=== PATIENT | female | born 1960 | race Caucasian/White ===

== ENCOUNTER 2016-06-02 21:56 | Emergency (ER) | payer OTHER ==
[2016-06-02 22:06] VITALS: TEMP 98.2; BMI 34.4
--- NOTE | 2016-06-02 22:35 | PDOC ---
History of Present Illness - History of Present Illness Initial Comments: 06/02/16 22:56 The patient is a 55 year old female with a past medical hx of HTN (lisinopril) who presents to the ED complaining of a headache since 1600 this afternoon. The patient reports her headache is localized to the frontal and occipital regions. She states she took Ibuprofen at 20:00 this evening with no relief. She reports associated nausea and a nose bleed. The nose bleed has since subsided. The patient denies any fever, chills The patient denies any neck pain, visual changes Surgical: , tubal ligation Allergies: NKDA Social: Denies tobacco use The patient speaks Gibraltarian. Interlibrary Loan Specialist phone used, [phone]. <Layla Quezada - Last Filed: 06/02/16 23:57> <Ana Stallworth - Last Filed: 06/03/16 01:50> - General Chief Complaint: Pain Stated Complaint: HEAD PAIN/NOSE BLEED Time Seen by Provider: 06/02/16 22:24 Past History <Layla Quezada - Last Filed: 06/02/16 23:57> - Past Medical History Anemia: No Asthma: No Cancer: No Cardiac Disorders: No CVA: No COPD: No CHF: No Dementia: No Diabetes: Yes GI Disorders: Yes (ENDOSCOPY 04/27) Disorders: No HTN: Yes Hypercholesterolemia: No Liver Disease: No Suicide Attempt (Hx): No Seizures: No Thyroid Disease: No - Surgical History Abdominal Surgery: No Appendectomy: No Cardiac Surgery: No Cholecystectomy: No Lung Surgery: No Neurologic Surgery: No Orthopedic Surgery: No - Psycho/Social/Smoking Cessation Hx Anxiety: No Suicidal Ideation: No Smoking Status: No Smoking History: Never smoked Have you smoked in the past 12 months: No Number of Cigarettes Smoked Daily: 0 Hx Alcohol Use: No Drug/Substance Use Hx: No Substance Use Type: None Hx Substance Use Treatment: No <Ana Stallworth - Last Filed: 06/03/16 01:50> - Past Medical History Allergies/Adverse Reactions: Allergies Allergy/AdvReac Type Severity Reaction Status Date / Time No Known Allergies Allergy Verified 06/02/16 22:02 Home Medications: Ambulatory Orders Lisinopril [Prinivil] 20 mg PO DAILY 06/02/16 Butalb/Acetaminophen/Caffeine [Fioricet 50-300-40 mg Capsule] 1 each PO BID PRN #12 capsule 06/03/16 Review of Systems - Review of Systems Able to Perform ROS?: Yes Comments:: 06/02/16 22:56 CONSTITUTIONAL: Absent: fever, chills, diaphoresis, generalized weakness, malaise, loss of appetite HEENT: +Epistaxis. Absent: rhinorrhea, nasal congestion, throat pain, throat swelling, difficulty swallowing, mouth swelling, ear pain, eye pain, visual Changes CARDIOVASCULAR: Absent: chest pain, syncope, palpitations, irregular heart rate, lightheadedness , peripheral edema RESPIRATORY: Absent: cough, shortness of breath, dyspnea with exertion, orthopnea, wheezing, stridor, hemoptysis GASTROINTESTINAL: +Nausea. Absent: abdominal pain, abdominal distension, vomiting, diarrhea, constipation, melena, hematochezia GENITOURINARY: Absent: dysuria, frequency, urgency, hesitancy, hematuria, flank pain, genital pain MUSCULOSKELETAL: Absent: myalgia, arthralgia, joint swelling SKIN: Absent: rash, itching, pallor HEMATOLOGIC/IMMUNOLOGIC: Absent: easy bleeding, easy bruising, lymphadenopathy, frequent infections ENDOCRINE: Absent: unexplained weight gain, unexplained weight loss, heat intolerance, cold intolerance NEUROLOGIC: +Headache. Absent: focal weakness or paresthesias, dizziness, unsteady gait, seizure, mental status changes, bladder or bowel incontinence PSYCHIATRIC: Absent: anxiety, depression, suicidal or homicidal ideation, hallucinations. <Layla Quezada - Last Filed: 06/02/16 23:57> *Physical Exam - Vital Signs Last Vital Signs Temp Pulse Resp BP Pulse Ox 98.2 F 77 18 147/59 98 06/02/16 22:03 06/02/16 22:03 06/02/16 22:03 06/02/16 22:03 06/02/16 22:03 - Physical Exam Comments: 06/02/16 22:56 GENERAL: Well developed, well nourished. Awake and alert. No acute distress. HEENT: Normocephalic, atraumatic. PERRLA, EOMI. No conjunctival pallor. Sclera are non- icteric. Moist mucous membranes. Oropharynx is clear. NECK: Supple. Full ROM. No JVD. Carotid pulses 2+ and symmetric, without bruits. No thyromegaly. No lymphadenopathy. CARDIOVASCULAR: Regular rate and rhythm. No murmurs, rubs, or gallops. Distal pulses are 2+ and symmetric. PULMONARY: No evidence of respiratory distress. Lungs clear to auscultation bilaterally. No wheezing, rales or rhonchi. ABDOMINAL: Soft. Non-tender. Non-distended. No rebound or guarding. No organomegaly. Normoactive bowel sounds. MUSCULOSKELETAL Normal range of motion at all joints. No bony deformities or tenderness. No CVA tenderness. EXTREMITIES: No cyanosis. No clubbing. No edema. No calf tenderness. SKIN: Warm and dry. Normal capillary refill. No rashes. No jaundice. NEUROLOGICAL: Alert, awake, appropriate. Cranial nerves 2-12 intact. No deficits to light touch and temperature in face, upper extremities and lower extremities. No motor deficits in the in face, upper extremities and lower extremities. Normoreflexic in the upper and lower extremities. Normal speech. Toes are down-going bilaterally. Gait is normal without ataxia. PSYCHIATRIC: Cooperative. Good eye contact. Appropriate mood and affect. <Layla Quezada - Last Filed: 06/02/16 23:57> - Vital Signs Last Vital Signs Temp Pulse Resp BP Pulse Ox 98.2 F 77 18 147/59 98 06/02/16 22:03 06/02/16 22:03 06/02/16 22:03 06/02/16 22:03 06/02/16 22:03 <Ana Stallworth - Last Filed: 06/03/16 01:50> Heart Score/ECG Review - ECG Impressions Comment:: 06/02/16 23:59 EKG NSR at a rate of 71 bpm <Layla Quezada - Last Filed: 06/02/16 23:57> ED Treatment Course - RADIOLOGY Radiograph Interpretation: 06/02/16 23:27 CT Head without contrast Impression: CT imaging completed with no mass, hemorrhage or acute vascular territory infarction. No acute changes in the brain identified. Reported by: Jose Alberto Kaye MD 06/02/16 [id number] <Layla Quezada - Last Filed: 06/02/16 23:57> - LABORATORY CBC & Chemistry Diagram: 06/03/16 00:08 06/03/16 00:08 <Ana Stallworth - Last Filed: 06/03/16 01:50> Medical Decision Making - Medical Decision Making 06/03/16 01:30 55 yo female p/w headache,nose bleed today. The headache was both frontal and occipital,no visual changes .Pt is axox3.no ataxia no gross focal neuro deficits no fever,no chills,no neck pain ,no vomiting but did have some nausea ct scan head no acute intracranial pathology -upon arrival she had no active epistaxis -ekg nsr 71 bpm ,no signs of ischemia. It was very similar to her ekg of April cbc is normal chemistry shows mild hyperglycemia 136 neg troponin -headache resolved w reglan,IVF I spoke to the pt's family later and this headache had been intermittent for several weeks. However she was not taking any medication for it and today she only took one tablet of ibuprofen for her headache -I explained that she could take 400mg -600mg of ibuprofen with food because 200mg of ibuprofen was probably insufficient amount IMP :headache- new daily persistent/ nose bleed resolved 06/03/16 01:44 06/03/16 01:49 <Ana Stallworth - Last Filed: 06/03/16 01:50> *DC/Admit/Observation/Transfer - Attestations Scribe Attestion: 06/02/16 22:56 Documentation prepared by Layla Quezada, acting as medical instrument cable fabricator for Ana Stallworth MD/DO. <Layla Quezada - Last Filed: 06/02/16 23:57> <Ana Stallworth - Last Filed: 06/03/16 01:50> Diagnosis at time of Disposition: Nasal bleeding, Hyperglycemia Head ache Qualifiers: Headache type: unspecified Headache chronicity pattern: acute headache Intractability: not intractable Qualified Code(s): R51 - Headache - Discharge Dispostion Disposition: HOME Condition at time of disposition: Stable - Prescriptions Prescriptions: Butalb/Acetaminophen/Caffeine [Fioricet 50-300-40 mg Capsule] 1 each PO BID PRN #12 capsule PRN Reason: Headache - Referrals Referrals: Saranya Mcfarlane MD [Primary Care Provider] - - Patient Instructions Printed Discharge Instructions: DI for Hormonal and Tension Headaches, DI for Nosebleed, DI for Hyperglycemia -- Adult Additional Instructions: Please follow up with your doctor because your blood sugar was elevated and this needs to be repeated
[2016-06-02] MEDS ORDERED: METOCLOPRAMIDE HCL INJECTION 10 MG/2 ML VIAL IVPUSH ONE (23:03)
[2016-06-02] MEDS ORDERED: SODIUM CHLORIDE 1,000 ML IV STA (23:03)
[2016-06-02] MEDS ORDERED: ACETAMINOPHEN 500 MG TABLET (FP) PO ONE (23:04)
[2016-06-02] MEDS ORDERED: ACETAMINOPHEN 325 MG TABLET (FP) ONE (23:47)
[2016-06-02] MEDS ORDERED: METOCLOPRAMIDE HCL INJECTION 10 MG/2 ML VIAL ONE (23:47)
[2016-06-03 00:21] LABS: BASOPHIL 1.5 % (0-2.0); MCH 30.3 pg (25.7-33.7); MCHC 33.8 g/dl (32.0-36.0); MEAN CELL VOLUME 89.6 fl (80-96); MEAN PLT VOLUME 9.7 fl (7.5-11.1); NEUTROPHILS 61.4 % (42.8-82.8); PLATELET COUNT 130 K/MM3 (134-434); RDW 13.4 % (11.6-15.6); WHITE BLOOD COUNT 5.6 K/mm3 (4.0-10.0)
[2016-06-03 00:52] LABS: ANION GAP 10 (8-16); CALCIUM 8.9 mg/dL (8.5-10.1); CO2 24 mmol/L (21-32); COCKROFT - GAULT 105.6975; CREATININE 0.8 mg/dL (0.55-1.02); GLUCOSE,RANDOM 136 mg/dL (74-106); SGOT/AST 21 U/L (15-37); SGPT/ALT 31 U/L (12-78); TROPONIN I < 0.02 ng/ml (0.00-0.05)
[2016-06-03 00:53] LABS: ALK PHOS 38 U/L (45-117); BILIRUBIN,TOTAL 0.5 mg/dL (0.2-1.0); TOT PROT 7.3 g/dl (6.4-8.2)
[2016-06-03 02:04] VITALS: BP 111/74; PULSE 58
--- NOTE | 2016-06-03 13:11 | EKG ---
Test Reason : Blood Pressure : / mmHG Vent. Rate : 071 BPM Atrial Rate : 071 BPM P-R Int : 184 ms QRS Dur : 086 ms QT Int : 400 ms P-R-T Axes : 047 014 047 degrees QTc Int : 434 ms NORMAL SINUS RHYTHM LOW VOLTAGE QRS BORDERLINE ECG WHEN COMPARED WITH ECG OF 25-APR-2012 23:24, NO SIGNIFICANT CHANGE WAS FOUND Confirmed by FRANCISCO CANDELARIA MD ([id number]) on 06/03/2016 1:11:11 PM Referred By: Confirmed By:FRANCISCO CANDELARIA MD
== END 2016-06-03 02:04 | disposition home or self-care (01) ==
LOC: JER 21:56
PROC: 3E0337Z Introduction of Electrolytic and Water Balance Substance into Peripheral Vein, Percutaneous Approach (ICD-10-PCS; principal; 2016-06-02)
PROC: 3E033GC Introduction of Other Therapeutic Substance into Peripheral Vein, Percutaneous Approach (ICD-10-PCS; 2016-06-02)
DX: R51 Headache (principal); E11.65 Type 2 diabetes mellitus with hyperglycemia
CPT/HCPCS: 36415; 70450-TC; 80053; 82550; 82553; 84484; 85025; 93005; 93010; 96361; 96374; 96375; 99284-25

== ENCOUNTER 2016-08-26 13:59 | Emergency (ER) | payer OTHER ==
[2016-08-26 14:06] VITALS: BMI 34.7
--- NOTE | 2016-08-26 14:23 | PDOC ---
History of Present Illness - General Chief Complaint: Pain Stated Complaint: ABD PAIN Time Seen by Provider: 08/26/16 14:23 History Source: Patient, Medical Technologist Used (marketing communications specialist [id number]) Exam Limitations: No Limitations - History of Present Illness Initial Comments: 08/26/16 15:29 Patient is a 56-year-old female with a past medical history of hypertension, eti-gszppvr-eacjpeeqp diabetes migraines, acid reflux, gastritis who presents to the emergency department complaining of a burning sensation in her throat, nausea, headache, fatigue and weakness. Patient states her symptoms began approximately 2 days ago. She states that her burning sensation radiates up her throat and to her left chest. Nothing has made her symptoms better. She states that the symptoms just came on and nothing provoked them. She also states that she has dysuria, frequency, and urgency. Denies chest pain, palpitations, lightheadedness, shortness of breath, wheezing, vomiting, diarrhea and constipation. Past History - Travel Traveled outside of the country in the last 30 days: No Close contact w/someone who was outside of country & ill: No - Past Medical History Allergies/Adverse Reactions: Allergies Allergy/AdvReac Type Severity Reaction Status Date / Time No Known Allergies Allergy Verified 08/26/16 14:05 Home Medications: Ambulatory Orders Lisinopril [Prinivil] 20 mg PO DAILY 06/02/16 Bismuth Subsalicylate [Pepto-Bismol -] 524 mg PO BID #420 ml 08/26/16 Pantoprazole Sodium [Protonix -] 40 mg PO DAILY #7 tablet.ec 08/26/16 Simvastatin [Zocor -] 20 mg PO HS 08/26/16 Anemia: No Asthma: No Cancer: No Cardiac Disorders: No CVA: No COPD: No CHF: No Dementia: No Diabetes: Yes GI Disorders: Yes (REFLUX) Disorders: No HTN: Yes Hypercholesterolemia: No Liver Disease: No Suicide Attempt (Hx): No Seizures: No Thyroid Disease: No - Surgical History Abdominal Surgery: No Appendectomy: No Cardiac Surgery: No Cholecystectomy: No Lung Surgery: No Neurologic Surgery: No Orthopedic Surgery: No - Immunization History Immunization Up to Date: No - Psycho/Social/Smoking Cessation Hx Anxiety: No Suicidal Ideation: No Smoking Status: No Smoking History: Never smoked Have you smoked in the past 12 months: No Number of Cigarettes Smoked Daily: 0 Hx Alcohol Use: No Drug/Substance Use Hx: No Substance Use Type: None Hx Substance Use Treatment: No Review of Systems - Review of Systems Able to Perform ROS?: Yes Is the patient limited Setswana proficient: Yes Constitutional: Yes: Malaise, Weakness. No: Chills, Fever Respiratory: No: Cough, Shortness of Breath, Wheezing Cardiac (ROS): No: Chest Pain, Lightheadedness, Chest Tightness ABD/GI: Yes: Nausea, Indigestion, Other (burning in her throat). No: Diarrhea, Vomiting : Yes: Burning, Dysuria, Frequency, Urgency. No: Flank Pain, Hematuria All Other Systems: Reviewed and Negative *Physical Exam - Vital Signs Last Vital Signs Temp Pulse Resp BP Pulse Ox 98.6 F 71 20 120/63 97 08/26/16 14:03 08/26/16 14:03 08/26/16 14:03 08/26/16 14:03 08/26/16 14:03 - Physical Exam General Appearance: Yes: Nourished, Appropriately Dressed, Mild Distress ( Sitting on exam bed, anxious appearing, AAOx3 breathing easily), Obese Neck: positive: Trachea midline, Supple. negative: Tender, Rigid Respiratory/Chest: positive: Lungs Clear, Normal Breath Sounds. negative: Respiratory Distress, Accessory Muscle Use, Rales, Rhonchi, Wheezing Cardiovascular: positive: Regular Rhythm, Regular Rate, S1, S2 (present). negative: Murmur Gastrointestinal/Abdominal: positive: Normal Bowel Sounds, Tender (TTP LLQ, Epigastric region with radiation to the back), Flat, Soft, Organomegaly. negative: Guarding, Rebound Neurologic: positive: digital media manager II-XII NML intact, Fully Oriented, Alert, Normal Mood/ Affect, Normal Response, Motor Strength 5/5 Deep Tendon Reflexes: Ankle (L): 2+, Ankle (R): 2+, Knee (L): 2+, Knee (R): 2+ ED Treatment Course - LABORATORY CBC & Chemistry Diagram: 08/26/16 15:15 08/26/16 15:15 Medical Decision Making - Medical Decision Making 08/26/16 15:39 Patient is a 56-year-old female with a past medical history of hypertension, nty-acwxuzm-hfayfjhau diabetes migraines, acid reflux, gastritis who presents to the emergency department complaining of a burning sensation in her throat, nausea, headache, fatigue and weakness. Given patient's multiple and vague complaints, will do a broad workup. Likely GERD/gastritis with probable UTI, cannot rule out ACS. 1. CBC, CMP, Lipase, Cardiac Panel, UA, UC, PT/INR 2. EKG 3. Zofran and protonix 4. Re-evaluate 08/26/16 17:55 EKG shows normal sinus rhythm with a rate of 67 bpm. [place] is normal. AR interval 186. No ST elevations or depressions. T-wave flattening in lead II Labs are notable for an elevated CK-MB. Trop is negative. Most probably GERD/. Pt states she feels a little better but she still has some burning. Will try peptobismol at this time. Re-evaluate 08/26/16 19:36 She feels better after receiving Pepto-Bismol. As long as second troponin is negative we will discharge home. Is most likely a flare of her gastritis. Patient was instructed that she needs to follow up with her primary care doctor tomorrow. Sign out given to Gabbie Rojo NP. *DC/Admit/Observation/Transfer Diagnosis at time of Disposition: Acute gastritis Qualifiers: Gastritis type: unspecified gastritis Gastritis bleeding: without bleeding Qualified Code(s): K29.00 - Acute gastritis without bleeding - Discharge Dispostion Disposition: HOME Condition at time of disposition: Improved Admit: No - Referrals Referrals: Saranya Mcfarlane MD [Primary Care Provider] - - Patient Instructions Printed Discharge Instructions: DI for Gastritis Additional Instructions: Tuviste un brote de gastritis. Todo altamirano trabajo de laboratorio hoy era negativo y altamirano EKG era normal. Altamirano prescrita Pepto Ismol, as renee Protonix. [place] estos medicamentos segn lo prescrito hasta que se sienta mejor. Coma lurdes dieta suave incluyendo el arroz y la tostada de la compota de manzana de los pltanos hasta que aracely sntomas disminuyan. Siga con altamirano mdico de atencin primaria maana. Vuelva al departamento de emergencias si tiene dolor agravado, dolor en el pecho , dificultad para respirar o cualquier cambio en aracely sntomas. Print Language: HONDURAN
--- NOTE | 2016-08-26 15:03 | PDOC ---
*Physical Exam - Vital Signs Last Vital Signs Temp Pulse Resp BP Pulse Ox 98.6 F 71 20 120/63 97 08/26/16 14:03 08/26/16 14:03 08/26/16 14:03 08/26/16 14:03 08/26/16 14:03 Heart Score/ECG Review #1 ECG reviewed & interpreted by me at: 16:09 08/26/16 16:10 Twelve-lead EKG was performed and reviewed by me. There is normal sinus rhythm with a normal rate of 67 bpm. The axis is normal. The intervals are normal - pr: 186ms, QRS:78ms, QTc:441ms. There are no ST elevations or depressions. T wave flattening II Impression: Normal twelve-lead EKG ED Treatment Course - LABORATORY CBC & Chemistry Diagram: 08/26/16 15:15 08/26/16 15:15 Medical Decision Making - Medical Decision Making 08/26/16 15:02 This is a 56 yo F who presents to the ER with a complaint of abdominal pain, located in the epigastrium No diaphresis Pain has been constant No alleviating factors No exertional symptoms No pain radiating to the back or jaw No diarrhea Pt seen by Midlevel Provider under my direct supervision Ancillary studies reviewed Pending repeat trop Given antacid I agree with plan as outlined by Midlevel Provider *DC/Admit/Observation/Transfer Diagnosis at time of Disposition: Acute gastritis - Prescriptions Prescriptions: Bismuth Subsalicylate [Pepto-Bismol -] 524 mg PO BID #420 ml Pantoprazole Sodium [Protonix -] 40 mg PO DAILY #7 tablet.ec - Referrals Referrals: Saranya Mcfarlane MD [Primary Care Provider] - - Patient Instructions Printed Discharge Instructions: DI for Gastritis Additional Instructions: Tuviste un brote de gastritis. Todo altamirano trabajo de laboratorio hoy era negativo y altamirano EKG era normal. Alt[place]irano prescrita Pepto Ismol, as renee Protonix. [place] estos medicamentos segn lo prescrito hasta que se sienta mejor. Coma lurdes dieta suave incluyendo el arroz y la tostada de la compota de manzana de los pltanos hasta que aracely sntomas disminuyan. Siga con altamirano mdico de atencin primaria maana. Vuelva al departamento de emergencias si tiene dolor agravado, dolor en el pecho , dificultad para respirar o cualquier cambio en aracely sntomas. Print Language: QATARI
[2016-08-26] MEDS ORDERED: ONDANSETRON 4 MG/2 ML VIAL IVPUSH ONE (15:32)
[2016-08-26] MEDS ORDERED: PANTOPRAZOLE SODIUM 40 MG in SODIUM CHLORIDE 100 ML IVPB ONE (15:32)
[2016-08-26 15:35] LABS: BASOPHIL 1.4 % (0-2.0); EOSINOPHIL 0.9 % (0-4.5); MCH 29.5 pg (25.7-33.7); MCHC 33.1 g/dl (32.0-36.0); MEAN CELL VOLUME 89.4 fl (80-96); MEAN PLT VOLUME 9.8 fl (7.5-11.1); NEUTROPHILS 61.8 % (42.8-82.8); PLATELET COUNT 124 K/MM3 (134-434); RDW 13.8 % (11.6-15.6); WHITE BLOOD COUNT 5.4 K/mm3 (4.0-10.0)
[2016-08-26] MEDS ORDERED: ONDANSETRON 4 MG/2 ML VIAL ONE (15:36)
[2016-08-26] MEDS ORDERED: PANTOPRAZOLE SODIUM 40 MG VIAL ONE (15:37)
[2016-08-26 15:58] LABS: URINE APPEARANCE CLEAR; URINE BILIRUBIN NEGATIVE (NEGATIVE); URINE BLOOD NEGATIVE (NEGATIVE); URINE COLOR STRAW; URINE GLUCOSE (UA) NEGATIVE (NEGATIVE); URINE KETONE NEGATIVE (NEGATIVE); URINE LEUK ESTERASE NEGATIVE (NEGATIVE); URINE NITRITE NEGATIVE (NEGATIVE); URINE PROTEIN NEGATIVE (NEGATIVE); URINE UROBILINOGEN NEGATIVE E.U./dl (0.2-1.0)
[2016-08-26 16:02] LABS: ALBUMIN 4.2 g/dl (3.4-5.0); ANION GAP 9 (8-16); CALCIUM 9.1 mg/dL (8.5-10.1); CO2 25 mmol/L (21-32); CREATININE 0.8 mg/dL (0.55-1.02); GLUCOSE,RANDOM 142 mg/dL (74-106); SGOT/AST 30 U/L (15-37); SGPT/ALT 45 U/L (12-78)
[2016-08-26 16:04] LABS: ALK PHOS 41 U/L (45-117); BILIRUBIN,TOTAL 0.7 mg/dL (0.2-1.0); TOT PROT 7.7 g/dl (6.4-8.2)
[2016-08-26 16:06] LABS: TROPONIN I < 0.02 ng/ml (0.00-0.05)
[2016-08-26] MEDS ORDERED: BISMUTH SUBSALICYLATE 262 MG/15 ML BTL PO ONE (17:51)
[2016-08-26 19:31] VITALS: BP 123/73; PULSE 63; TEMP 97.3
--- NOTE | 2016-08-26 19:47 | PDOC ---
*Physical Exam - Vital Signs Last Vital Signs Temp Pulse Resp BP Pulse Ox 97.3 F L 63 17 123/73 98 08/26/16 19:30 08/26/16 19:30 08/26/16 19:30 08/26/16 19:30 08/26/16 19:30 - Physical Exam Comments: 08/26/16 19:47 Sign-out received from outgoing ER provider Ember. Pt interviewed and examined. Patient states she is feeling better after medications. Ancillary studies reviewed. Awaiting repeat cardiac enzymes. 08/26/16 20:15 Repeat trop negative. Will discharge patient to home with close f/u with PMD. ED Treatment Course - LABORATORY CBC & Chemistry Diagram: 08/26/16 15:15 08/26/16 15:15 - ADDITIONAL ORDERS Additional order review: Laboratory Results 08/26/16 08/26/16 08/26/16 15:15 15:15 15:15 Sodium 142 Potassium 3.9 Chloride 108 H Carbon Dioxide 25 Anion Gap 9 BUN 15 Creatinine 0.8 Creat Clearance w eGFR > 60 Random Glucose 142 H Calcium 9.1 Total Bilirubin 0.7 D AST 30 D ALT 45 D Alkaline Phosphatase 41 L Creatine Kinase 430 H D CK-MB (CK-2) 6.200 H Troponin I < 0.02 Total Protein 7.7 Albumin 4.2 Lipase 113 Urine Color Straw Urine Appearance Clear Urine pH 5.0 Urine Protein Negative Urine Glucose (UA) Negative Urine Ketones Negative Urine Blood Negative Urine Nitrite Negative Urine Bilirubin Negative Urine Urobilinogen Negative Ur Leukocyte Esterase Negative 08/26/16 15:15 Sodium Cancelled Potassium Cancelled Chloride Cancelled Carbon Dioxide Cancelled Anion Gap Cancelled BUN Cancelled Creatinine Cancelled Creat Clearance w eGFR Cancelled Random Glucose Cancelled Calcium Cancelled Total Bilirubin Cancelled AST Cancelled ALT Cancelled Alkaline Phosphatase Cancelled Creatine Kinase CK-MB (CK-2) Troponin I Total Protein Cancelled Albumin Cancelled Lipase Urine Color Urine Appearance Urine pH Urine Protein Urine Glucose (UA) Urine Ketones Urine Blood Urine Nitrite Urine Bilirubin Urine Urobilinogen Ur Leukocyte Esterase 08/26/16 15:15 RBC 4.60 MCV 89.4 MCHC 33.1 RDW 13.8 MPV 9.8 Neutrophils % 61.8 Lymphocytes % 30.2 Monocytes % 5.7 Eosinophils % 0.9 Basophils % 1.4 - Medications Given in the ED: ED Medications Discontinued Medications Generic Name Dose Route Start Last Admin Trade Name Freq PRN Reason Stop Dose Admin Bismuth Subsalicylate 30 ml 08/26/16 17:51 08/26/16 18:50 Pepto-Bismol Liquid - PO 08/26/16 17:52 30 ml ONCE ONE Administration Pantoprazole Sodium 40 mg/ 100 mls @ 200 mls/hr 08/26/16 15:32 08/26/16 15:55 Sodium Chloride IVPB 08/26/16 16:01 200 mls/hr ONCE ONE Administration Ondansetron HCl 4 mg 08/26/16 15:32 08/26/16 15:56 Zofran Injection IVPUSH 08/26/16 15:33 4 mg ONCE ONE Administration *DC/Admit/Observation/Transfer Diagnosis at time of Disposition: Acute gastritis Qualifiers: Gastritis type: unspecified gastritis Gastritis bleeding: without bleeding Qualified Code(s): K29.00 - Acute gastritis without bleeding - Prescriptions Prescriptions: Bismuth Subsalicylate [Pepto-Bismol -] 524 mg PO BID #420 ml Pantoprazole Sodium [Protonix -] 40 mg PO DAILY #7 tablet.ec - Referrals Referrals: Saranya Mcfarlane MD [Primary Care Provider] - - Patient Instructions Printed Discharge Instructions: DI for Gastritis Additional Instructions: Tuviste un brote de gastritis. Todo altamirano trabajo de laboratorio hoy era negativo y altamirano EKG era normal. Altamirano prescrita Pepto Ismol, as renee Protonix. [place] estos medicamentos segn lo prescrito hasta que se sienta mejor. Coma lurdes dieta suave incluyendo el arroz y la tostada de la compota de manzana de los pltanos hasta que aracely sntomas disminuyan. Siga con altamirano mdico de atencin primaria maana. Vuelva al departamento de emergencias si tiene dolor agravado, dolor en el pecho , dificultad para respirar o cualquier cambio en aracely sntomas. Print Language: CENTRAL AFRICAN - Post Discharge Activity
[2016-08-26 19:53] LABS: TROPONIN I < 0.02 ng/ml (0.00-0.05)
--- NOTE | 2016-08-27 13:10 | EKG ---
Test Reason : Blood Pressure : / mmHG Vent. Rate : 067 BPM Atrial Rate : 067 BPM P-R Int : 186 ms QRS Dur : 078 ms QT Int : 418 ms P-R-T Axes : 037 -08 034 degrees QTc Int : 441 ms POOR DATA QUALITY, INTERPRETATION MAY BE ADVERSELY AFFECTED NORMAL SINUS RHYTHM LOW VOLTAGE QRS CANNOT RULE OUT ANTERIOR INFARCT , AGE UNDETERMINED ABNORMAL ECG WHEN COMPARED WITH ECG OF 02-JUN-2016 23:54, NO SIGNIFICANT CHANGE WAS FOUND Confirmed by SLY CHOU MD ([id number]) on 08/27/2016 1:10:27 PM Referred By: Confirmed By:SLY CHOU MD
== END 2016-08-26 20:21 | disposition home or self-care (01) ==
LOC: JER 13:59
PROC: 3E033GC Introduction of Other Therapeutic Substance into Peripheral Vein, Percutaneous Approach (ICD-10-PCS; principal; 2016-08-26)
DX: K29.00 Acute gastritis without bleeding (principal)
CPT/HCPCS: 36415; 80053; 81003; 82550; 82553; 83690; 84484; 85025; 87086; 93005; 93010; 96365; 96375; 99283-25

== ENCOUNTER 2017-03-14 08:46 | Emergency (ER) | payer OTHER ==
[2017-03-14 08:50] VITALS: BP 143/73; PULSE 73; TEMP 98.3; BMI 34.4
--- NOTE | 2017-03-14 09:18 | PDOC ---
History of Present Illness - General Chief Complaint: Respiratory Stated Complaint: COUGH Time Seen by Provider: 03/14/17 09:04 History Source: Patient Exam Limitations: No Limitations - History of Present Illness Initial Comments: 03/14/17 11:46 This 56-year-old female who presents here with complaints of a cough that is bothering her at night. She was seen by her primary physician 2 days ago where she was treated with Augmentin and still remains on this antibiotic. She says that this is not helping because she is still coughing at night. She has not taken any [id number] medications. She states that she is having some difficulty at night when she lays down. Past History - Past Medical History Allergies/Adverse Reactions: Allergies Allergy/AdvReac Type Severity Reaction Status Date / Time No Known Allergies Allergy Verified 03/14/17 08:50 Home Medications: Ambulatory Orders Lisinopril [Prinivil] 20 mg PO DAILY 06/02/16 Bismuth Subsalicylate [Pepto-Bismol -] 524 mg PO BID #420 ml 08/26/16 Pantoprazole Sodium [Protonix -] 40 mg PO DAILY #7 tablet.ec 08/26/16 Simvastatin [Zocor -] 20 mg PO HS 08/26/16 Benzonatate [Tessalon Pearls -] 100 mg PO TID #21 capsule 03/14/17 Anemia: No Asthma: No Cancer: No Cardiac Disorders: No CVA: No COPD: No CHF: No Dementia: No Diabetes: Yes GI Disorders: Yes (REFLUX) Disorders: No HTN: Yes Hypercholesterolemia: No Liver Disease: No Seizures: No Thyroid Disease: No - Surgical History Abdominal Surgery: No Appendectomy: No Cardiac Surgery: No Cholecystectomy: No Lung Surgery: No Neurologic Surgery: No Orthopedic Surgery: No - Immunization History Immunization Up to Date: No - Suicide/Smoking/Psychosocial Hx Smoking Status: No Smoking History: Never smoked Have you smoked in the past 12 months: No Number of Cigarettes Smoked Daily: 0 Hx Alcohol Use: No Drug/Substance Use Hx: No Substance Use Type: None Hx Substance Use Treatment: No Review of Systems - Review of Systems Able to Perform ROS?: Yes Comments:: 03/14/17 11:47 General statement: Complaining of coughing at night Hematology: neg history of bleeding/blood thinners Skin: Neg for lesions, rash, bruising. HEENT: Neg symptoms Respiratory: Neg SOB or difficulty in breathing Cardiac: Neg chest pain GI: Neg pain, n/v : Neg problems on voiding MS: Neg for joint pain/stiffness, no edema Neuro: Neg for LOC, weakness, Endocrine: Neg for excess thirst/hunger, cold/heat intolerance, excess sweating Allergies: Neg for allergies *Physical Exam - Vital Signs Last Vital Signs Temp Pulse Resp BP Pulse Ox 98.3 F 73 18 143/73 100 03/14/17 08:48 03/14/17 08:48 03/14/17 08:48 03/14/17 08:48 03/14/17 08:48 - Physical Exam Comments: 03/14/17 11:47 General Appearance: This well appearing V/S: hemodynamically stable, afebrile Skin: WNL of pt's skin color, no signs of pallor, mottling, cyanosis Head:symmetrical Eyes: EOM's intact, PERRLA Ears: denies pain Nose: patent Throat: lips, teeth, gums, tongue, buccal mucos pink and moist Lungs: Chest symmetry equal. Cap refill <3 seconds. Lung sounds clear no wheezing noted Cardiac: PMI at R 4MCL space, pos S1 and S2, regular rate. Abdomen: Soft, round, nontender : Not observed Muscularskeletal: Gait steady, ambulated in to ER, no edema +PMS Neuro: AAOx3, cognitively intact, speech clear and appropriate. Medical Decision Making - Medical Decision Making 03/14/17 11:48 She initially seen and examined. She had already been started on Augmentin. At this time of order Tessalon Terrance. Patient is now going to be discharged and told to follow-up with her primary physician as she is not having any wheezing and does not require any steroids. *DC/Admit/Observation/Transfer Diagnosis at time of Disposition: Cough in adult - Discharge Dispostion Disposition: HOME Condition at time of disposition: Good Admit: No - Prescriptions Prescriptions: Benzonatate [Tessalon Pearls -] 100 mg PO TID #21 capsule - Referrals Referrals: Aneglic Schwartz MD [Primary Care Provider] - - Patient Instructions Printed Discharge Instructions: DI for Acute Bronchitis Additional Instructions: Discharge instructions 1. Please follow up with your primary physician within the next few days and explain that you have been seen here in the Emergency Room. 2. If you experience any worsening of symptoms, please return to the ER 3. Rest and complete antibiotics as your MD prescribed. 4. Drink plenty of water Print Language: FAROESE - Post Discharge Activity
== END 2017-03-14 09:35 | disposition home or self-care (01) ==
LOC: JERFT 08:46
DX: R05 Cough (principal); I10 Essential (primary) hypertension; E11.9 Type 2 diabetes mellitus without complications; E78.00 Pure hypercholesterolemia, unspecified; K21.9 Gastro-esophageal reflux disease without esophagitis
CPT/HCPCS: 99281-25

== ENCOUNTER 2018-12-26 11:04 | Emergency (ER) | payer OTHER ==
[2018-12-26 11:10] VITALS: BP 133/87; PULSE 89; TEMP 98.2; BMI 36.1
--- NOTE | 2018-12-26 11:44 | PDOC ---
History of Present Illness - General Chief Complaint: Edema Stated Complaint: RT ARM PAIN/SWOLLEN RT HAND Time Seen by Provider: 12/26/18 11:19 - History of Present Illness Initial Comments: 12/26/18 11:39 58-year-old female without comorbidities presents for evaluation of 1 month of right middle finger pain and left thumb pain. No systemic symptoms. Seen by her primary care physician placed on a course of Naprosyn and a muscle relaxer she is gotten no relief. Past History - Past Medical History Allergies/Adverse Reactions: Allergies Allergy/AdvReac Type Severity Reaction Status Date / Time No Known Allergies Allergy Verified 12/26/18 11:10 Home Medications: Ambulatory Orders Lisinopril [Prinivil] 20 mg PO DAILY 06/02/16 Bismuth Subsalicylate [Pepto-Bismol -] 524 mg PO BID #420 ml 08/26/16 Pantoprazole Sodium [Protonix -] 40 mg PO DAILY #7 tablet.ec 08/26/16 Simvastatin [Zocor -] 20 mg PO HS 08/26/16 Benzonatate [Tessalon Pearls -] 100 mg PO TID #21 capsule 03/14/17 Diclofenac Sodium 75 mg PO BID 12/26/18 Naproxen 500 mg PO DAILY 12/26/18 Anemia: No Asthma: No Cancer: No Cardiac Disorders: No CVA: No COPD: No CHF: No Dementia: No Diabetes: Yes GI Disorders: Yes (REFLUX) Disorders: No HTN: Yes Hypercholesterolemia: No Liver Disease: No Seizures: No Thyroid Disease: No - Surgical History Abdominal Surgery: No Appendectomy: No Cardiac Surgery: No Cholecystectomy: No Lung Surgery: No Neurologic Surgery: No Orthopedic Surgery: No - Immunization History Immunization Up to Date: No - Psycho Social/Smoking Cessation Hx Smoking Status: No Smoking History: Never smoked Have you smoked in the past 12 months: No Number of Cigarettes Smoked Daily: 0 Hx Alcohol Use: No Drug/Substance Use Hx: No Substance Use Type: None Hx Substance Use Treatment: No Review of Systems - Review of Systems Constitutional: No: Fever Musculoskeletal: Yes: Joint Pain *Physical Exam - Vital Signs Last Vital Signs Temp Pulse Resp BP Pulse Ox 98.2 F 89 14 133/87 96 12/26/18 11:08 12/26/18 11:08 12/26/18 11:08 12/26/18 11:08 12/26/18 11:08 - Physical Exam Comments: 12/26There is swelling about the right middle finger. Normal skin color and temperature. There is sausagelike edema and mild pain with passive stretch. She refuses to flex the DIP and PIPJ. She is unable to make a full fist. There is no warmth no areas of fluctuance. Greatest area of tenderness is about the A1 waldo of the right hand. The remainder of the upper arm is soft and nontender with floppy compartments neurovascularly intact. The left thumb is of normal skin color and temperature full range of motion with tenderness at the A1 waldo. Neurovascular intact. Upper extremity compartments in the left upper extremity are soft and nontender. Medical Decision Making - Medical Decision Making 12/26/18 11:41 This appears to be a lingering trigger finger. I will have her follow-up with hand surgery. I do not suspect flexor tenosynovitis Discharge - Discharge Information Problems reviewed: Yes Clinical Impression/Diagnosis: Trigger finger of left thumb, Trigger finger, right middle finger Condition: Stable Disposition: HOME - Admission No - Follow up/Referral Referrals: David Bañuelos MD [Primary Care Provider] - Maycol Mayes MD [Staff Physician] - - Patient Discharge Instructions Patient Printed Discharge Instructions: Trigger Finger, DI for Trigger Finger Additional Instructions: Without fail please follow-up with orthopedic surgery in 1 to 2 days for further evaluation and treatment options. Continue your regular medication as directed and return to the emergency room should symptoms worsen. - Post Discharge Activity
== END 2018-12-26 12:11 | disposition home or self-care (01) ==
LOC: JERFT 11:04
DX: M65.331 Trigger finger, right middle finger (principal); M65.312 Trigger thumb, left thumb; I10 Essential (primary) hypertension; E11.9 Type 2 diabetes mellitus without complications; K21.9 Gastro-esophageal reflux disease without esophagitis
CPT/HCPCS: 99281-25

== ENCOUNTER 2021-09-03 15:29 | Emergency (ER) | payer OTHER ==
[2021-09-03 15:43] VITALS: BP 110/73; PULSE 79; TEMP 98.5; BMI 30.7
[2021-09-03 16:22] LABS: HEMATOCRIT 37.6 % (32.4-45.2); HEMOGLOBIN 13.3 G/dL (10.7-15.3); MCH 30.7 pg (25.7-33.7); MCHC 35.4 g/dl (32.0-36.0); MEAN CELL VOLUME 86.8 fl (80-96); MEAN PLT VOLUME 9.4 fl (7.5-11.1); PLATELET COUNT 136.7 10^3/uL (134-434); RBC 4.33 10^6/uL (3.60-5.2); RDW 14.6 % (11.6-15.6); WHITE BLOOD COUNT 5.2 10^3/uL (4.0-10.8)
[2021-09-03 16:26] LABS: INR 1.34 (0.83-1.09); PROTHROMBIN TIME (PATIENT) 15.5 SEC (9.7-13.0)
[2021-09-03 16:35] LABS: ALBUMIN 4.3 g/dl (3.4-5.0); CALCIUM 9.7 mg/dl (8.5-10); CREATININE 0.8 mg/dl (0.55-1.3); TOT PROT 7.3 g/dl (6.4-8.2)
[2021-09-03 16:37] LABS: PLATELET ESTIMATE ADEQUATE
[2021-09-03] MEDS ORDERED: ONDANSETRON 4 MG/2 ML VIAL IVPB ONE (16:58)
[2021-09-03] MEDS ORDERED: FAMOTIDINE 20 MG/50 ML IVPB 20 MG/50 ML MG IVPB ONE ×2 (16:58→17:05)
[2021-09-03] MEDS ORDERED: ONDANSETRON 4 MG/2 ML VIAL ONE (17:04)
== END 2021-09-03 18:38 | disposition home or self-care (01) ==
LOC: FER 15:29
PROC: 3E033GC Introduction of Other Therapeutic Substance into Peripheral Vein, Percutaneous Approach (ICD-10-PCS; principal; 2021-09-03)
DX: E11.40 Type 2 diabetes mellitus with diabetic neuropathy, unspecified (principal); K21.9 Gastro-esophageal reflux disease without esophagitis
CPT/HCPCS: 36415; 71045-TC-FY; 80053; 84484; 85027; 85610; 93005; 99285-25

== ENCOUNTER 2023-12-15 04:17 | Day surgery (SDC) | payer OTHER ==
[2023-12-10 18:05] VITALS: BMI 28.5
[2023-12-15] MEDS ORDERED: PHENYLEPHRINE 2.5% OPTHALMIC DROP 2ML BOTTLE ONE (07:17)
[2023-12-15] MEDS ORDERED: POVIDONE-IODINE 5% OPHTHALMIC PREP 30 ML SOLUTION ONE (07:17)
[2023-12-15] MEDS ORDERED: KETOROLAC TROMETHAMINE 0.5% EYE DROP 1 DROP DROPS ONE (07:17)
[2023-12-15] MEDS ORDERED: OFLOXACIN 0.3% OPHTHALMIC SOLUTION 5 ML BOTTLE ONE (07:17)
[2023-12-15] MEDS ORDERED: BSS (NA/CA/MG/K) BALANCED SALT SOLUTION OPHTH SOLN 15 ML BOTTLE ONE (07:17)
[2023-12-15] MEDS ORDERED: TROPICAMIDE 1% OPHTH SOLN 15 ML BOTTLE ONE (07:17)
[2023-12-15] MEDS ORDERED: LIDOCAINE HCL/PF 1% SDV 5ML VIAL ONE (07:17)
[2023-12-15] MEDS ORDERED: CYCLOPENTOLATE HCL 1% OPHTH SOLN 2 ML BOTTLE ONE (07:17)
[2023-12-15] MEDS: CYCLOPENTOLATE HCL 1% OPHTH SOLN 2 ML BOTTLE OP SCH (07:34)
[2023-12-15] MEDS: TROPICAMIDE 1% OPHTH SOLN 15 ML BOTTLE OP SCH (07:35)
[2023-12-15] MEDS: KETOROLAC TROMETHAMINE 0.5% EYE DROP 1 DROP DROPS OP SCH (07:35)
[2023-12-15] MEDS: PHENYLEPHRINE 2.5% OPHTH SOLN 15 ML BOTTLE OP SCH (07:36)
[2023-12-15] MEDS: OFLOXACIN 0.3% OPHTHALMIC SOLUTION 5 ML BOTTLE OP SCH (07:36)
[2023-12-15] MEDS ORDERED: MIDAZOLAM HCL 2 MG/2 ML SINGLE DOSE VIAL ONE (09:11)
[2023-12-15] MEDS: TETRACAINE 0.5% OPHTH SOLN 2 ML BOTTLE OD ONE ×2 (09:13)
[2023-12-15] MEDS: POVIDONE-IODINE 5% OPHTHALMIC PREP 30 ML SOLUTION OD ONE ×2 (09:15)
[2023-12-15] MEDS: LIDOCAINE HCL 1% PRESERVATIVE FREE - 30ML VIAL IO ONE ×2 (09:20)
[2023-12-15] MEDS: BSS (NA/CA/MG/K) BALANCED SALT SOLUTION OPHTH SOLN 15 ML BOTTLE IO ONE ×2 (09:23)
[2023-12-15] MEDS: CHONDROITIN SU A/HYALUR SOD 1 KIT IO ONE ×2 (09:26)
[2023-12-15] MEDS: EPINEPHrine 1:1,000 1,000 MCG/ML ML IVPB ONE ×2 (09:32)
[2023-12-15] MEDS ORDERED: ACETAMINOPHEN 325 MG TABLET (FP) ONE (10:22)
[2023-12-15] MEDS: ACETAMINOPHEN 325 MG TABLET (FP) PO PRN (10:25)
[2023-12-15 10:52] VITALS: BP 123/76; PULSE 60; RESP 20; TEMP 98
== END 2023-12-15 11:16 | disposition home or self-care (01) ==
LOC: JASU-SURG 04:17
PROVIDERS: ATTEND Ophthalmology
PROC: 08RK3JZ Replacement of Left Lens with Synthetic Substitute, Percutaneous Approach (ICD-10-PCS; principal; 2023-12-15 09:00)
DX: H26.9 Unspecified cataract (principal)
CPT/HCPCS: 82962; V2632